=== PATIENT | male | born 1995 | race Caucasian/White ===

== ENCOUNTER 2017-11-28 01:54 | Emergency (ER) | payer BC ==
[~2017-11-28] VITALS: Ht 167.6 cm; Wt 106.2 kg
[~2017-11-28 01:54] MED LIST: CARAFATE1 GM PO; CYCLOBENZAPRINE10 MG PO; IBUPROFEN800 MG PO; OMEPRAZOLE40 M1 PO
[2017-11-28 04:16] VITALS: BP 138/83
== END 2017-11-28 04:18 | disposition home or self-care (01) ==
LOC: EME 01:54
PROC: 0HQGXZZ Repair Left Hand Skin, External Approach (ICD-10-PCS; principal; 2017-11-28)
DX: S61.211A Laceration without foreign body of left index finger without damage to nail, initial encounter (principal); W26.0XXA Contact with knife, initial encounter; F17.200 Nicotine dependence, unspecified, uncomplicated
CPT/HCPCS: 99281; 99284